=== PATIENT | female | born 1950 | race Caucasian/White ===

== ENCOUNTER 2019-11-07 11:00 | Outpatient (CLI) | payer MEDICARE, SELFPAY ==
[2019-11-07 11:51] LABS: Magnesium 1.4 mg/dL (1.8-2.4)
== END 2019-11-07 11:01 | disposition home or self-care (01) ==
LOC: CHSLAB 11:02
PROVIDERS: PCP Nurse Practitioner Family; Visit Provider Nurse Practitioner Family
DX: R79.0 Abnormal level of blood mineral (principal)
CPT/HCPCS: 36415; 83735

== ENCOUNTER 2019-11-27 11:29 | Outpatient (CLI) | payer MEDICARE, SELFPAY ==
[2019-11-27 12:34] LABS: Magnesium 1.5 mg/dL (1.8-2.4)
[2019-11-27 12:53] LABS: Hemoglobin A1C 7.3 % (<5.7)
[2019-11-30 11:06] LABS: Vitamin D 25 Hydroxy 33 ng/mL (30-100)
== END 2019-11-27 11:30 | disposition home or self-care (01) ==
LOC: CHSLAB 11:33
PROVIDERS: PCP Nurse Practitioner Family; Visit Provider Nurse Practitioner Family
DX: R79.0 Abnormal level of blood mineral (principal); E11.9 Type 2 diabetes mellitus without complications; R53.1 Weakness
CPT/HCPCS: 36415; 82306; 83036; 83735

== ENCOUNTER 2020-03-04 09:17 | Outpatient (CLI) | payer MEDICARE, SELFPAY ==
[2020-03-04 09:39] LABS: Hemoglobin A1C 6.4 % (<5.7)
[2020-03-04 10:38] LABS: Magnesium 1.5 mg/dL (1.8-2.4)
[2020-03-07 10:27] LABS: Vitamin D 25 Hydroxy 33 ng/mL (30-100)
== END 2020-03-04 09:18 | disposition home or self-care (01) ==
PROVIDERS: PCP Nurse Practitioner Family; Visit Provider Nurse Practitioner Family
DX: R79.0 Abnormal level of blood mineral (principal); E11.9 Type 2 diabetes mellitus without complications; E55.9 Vitamin D deficiency, unspecified
CPT/HCPCS: 36415; 82306; 83036; 83735

== ENCOUNTER 2020-03-09 14:26 | Outpatient (CLI) | payer MEDICARE, OTHER, SELFPAY ==
[2020-03-09] MEDS: MAGNESIUM SULF 4 GM/WATER100ML 4 GM/100 ML BAG IVPB (14:50)
== END 2020-03-09 14:27 | disposition home or self-care (01) ==
LOC: CHSTREATRM 14:28
PROVIDERS: PCP Nurse Practitioner Family; Visit Provider Nurse Practitioner Family
DX: E83.42 Hypomagnesemia (principal)
CPT/HCPCS: 96365; 96366; J3475

== ENCOUNTER 2020-04-01 14:21 | Outpatient (CLI) | payer MEDICARE, OTHER, SELFPAY ==
--- NOTE | ~2020-04-01 | MM_ITS ---
CORRECTED REPORT ORDER # [id number] TO [id number] TITLE CHANGE 04/02/2020 G EXAMINATION: MM screening mammo BI W KYLER HISTORY: Screening mammogram TECHNIQUE: Craniocaudal and mediolateral oblique 3-D tomosynthesis images were obtained and synthetic 2-D images were generated. CAD analysis was submitted and interpreted. COMPARISON: 01/01/2019 diagnostic left mammogram and left breast ultrasound 12/13/2018, 11/07/2017, 02/24/2016 bilateral digital screening mammogram examinations BREAST PARENCHYMAL COMPOSITION: There are scattered areas of fibroglandular density. FINDINGS: There is no evidence of suspicious mass, calcification, or architectural distortion to suggest malignancy in either breast. There has been no suspicious interval change. IMPRESSION: 1. No mammographic evidence of malignancy. 2. Recommend routine screening mammography in one year. BI-RADS Category 1: Negative Reviewed, dictated and finalized at location A. MTDD
== END 2020-04-01 14:22 | disposition home or self-care (01) ==
LOC: CHSIMG 14:23
PROVIDERS: PCP Nurse Practitioner Family; Visit Provider Nurse Practitioner Family
DX: Z12.31 Encounter for screening mammogram for malignant neoplasm of breast (principal)
CPT/HCPCS: 77063; 77067

== ENCOUNTER 2020-04-16 08:20 | Outpatient (CLI) | payer MEDICARE, SELFPAY ==
[2020-04-16 09:05] LABS: Magnesium 1.6 mg/dL (1.8-2.4)
[2020-04-21 18:49] LABS: Vitamin D 25 Hydroxy 34 ng/mL (30-100)
== END 2020-04-16 08:21 | disposition home or self-care (01) ==
LOC: CHSLAB 08:23
PROVIDERS: PCP Nurse Practitioner Family; Visit Provider Nurse Practitioner Family
DX: E55.9 Vitamin D deficiency, unspecified (principal)
CPT/HCPCS: 36415; 82306; 83735

== ENCOUNTER 2020-06-05 07:49 | Outpatient (CLI) | payer MEDICARE, SELFPAY ==
[2020-06-05 08:50] LABS: Magnesium 1.4 mg/dL (1.8-2.4)
== END 2020-06-05 07:50 | disposition home or self-care (01) ==
LOC: CHSLAB 07:52
PROVIDERS: PCP Nurse Practitioner Family; Visit Provider Nurse Practitioner Family
DX: R79.0 Abnormal level of blood mineral (principal)
CPT/HCPCS: 36415; 83735

== ENCOUNTER 2020-06-12 07:42 | Outpatient (CLI) | payer MEDICARE, SELFPAY ==
[2020-06-18 23:46] LABS: Magnesium, 24-Hour Urine 51 mg/24 h (18-130)
== END 2020-06-12 07:43 | disposition home or self-care (01) ==
LOC: CHSLAB 07:44
PROVIDERS: PCP Nurse Practitioner Family; Visit Provider Nurse Practitioner Family
DX: E83.42 Hypomagnesemia (principal)
CPT/HCPCS: 83735

== ENCOUNTER 2020-06-26 13:59 | Outpatient (RCR) | payer MEDICARE, OTHER, SELFPAY ==
--- NOTE | 2020-06-26 15:15 | PTOPEVAL ---
Thank you for referring Erica Billy to [facility].? The patient is scheduled to be seen for therapy? __3__x/week for _12__ visits. Please review, sign, date and return this plan of care ROSELINE. I agree with and certify that the following plan of care is medically necessary. Referring Physician Date Admitting Provider: Attending Provider: Saida Arndt NP Referring Provider: *PT Outpatient Evaluation Start: 06/26/20 14:09 Freq: Status: Active Protocol: Document 06/26/20 14:09 CASSIE (Rec: 06/26/20 14:52 [email or web address] [email or web address]) Therapy Assessment Status Assessment Status Assessment Status Evaluation Evaluation Information Problem Diagnosis bilateral l.e. weakness Onset 10/09/19 Subjective Information Pt. reports she started noting Query Text:As Reported By Patient/ loss of energy in October. Family She underwent lab work and noticed a decrease in magnesium. She underwent infusion. she still had difficulty maintaining normal levels. She reports that she has been doing some supplements. She states that she has recently noticed herself losing balance. She recalls experiencing a fall about 2 weeks ago. She reports that prior to the beginning of the year she had no complication and was very active. she reports that her goal is to be able to walk and balance as she did prior the past 9 months. Prior Level of Function Activity Level (Last 3 Months) Occupation retired Hand Dominance Right Activity of Daily Living Ability Independent Indoor/Home Mobility Independent Community Mobility Independent Stairs Ability Independent Functional Cognition (Planning, Shopping Independent , Taking Medications) Cooking Yes Cleaning Yes Laundry Yes Shopping Yes Driving Yes Pain Assessment Self Report Self Report Pain Level 0 Pain Scale Pain Scale Used Numeric (1 - 10) Pain Score Pain Score 0: Self Report Lower Extremity Muscle Strength Testing General Lower Extremity Strength Gross Lower Extremity Strength bilateral
== END 2020-07-23 16:15 | disposition home or self-care (01) ==
LOC: CHSPT 13:59
PROVIDERS: PCP Nurse Practitioner Family; Visit Provider Nurse Practitioner Family
DX: R53.1 Weakness (principal)
CPT/HCPCS: 97110; 97161; 97530

== ENCOUNTER 2020-07-03 15:22 | Outpatient (CLI) | payer MEDICARE, SELFPAY ==
[2020-07-03 15:55] LABS: Magnesium 1.6 mg/dL (1.8-2.4)
== END 2020-07-03 15:23 | disposition home or self-care (01) ==
PROVIDERS: PCP Nurse Practitioner Family; Visit Provider Nurse Practitioner Family
DX: E83.42 Hypomagnesemia (principal)
CPT/HCPCS: 36415; 83735

== ENCOUNTER 2020-08-04 08:31 | Outpatient (CLI) | payer MEDICARE, SELFPAY ==
[2020-08-04 09:20] LABS: Magnesium 1.7 mg/dL (1.8-2.4)
[2020-08-04 11:15] LABS: Hemoglobin A1C 5.8 % (<5.7)
== END 2020-08-04 08:32 | disposition home or self-care (01) ==
LOC: CHSLAB 08:34
PROVIDERS: PCP Nurse Practitioner Family; Visit Provider Nurse Practitioner Family
DX: R79.0 Abnormal level of blood mineral (principal); E11.9 Type 2 diabetes mellitus without complications
CPT/HCPCS: 36415; 83036; 83735

== ENCOUNTER 2020-11-16 11:01 | Outpatient (CLI) | payer MEDICARE, SELFPAY ==
[2020-11-16 12:03] LABS: Magnesium 1.5 mg/dL (1.8-2.4)
== END 2020-11-16 11:02 | disposition home or self-care (01) ==
LOC: CHSLAB 11:03
PROVIDERS: PCP Nurse Practitioner Family; Visit Provider Nurse Practitioner Family
DX: E83.42 Hypomagnesemia (principal)
CPT/HCPCS: 36415; 83735

== ENCOUNTER 2020-12-08 11:34 | Outpatient (CLI) | payer MEDICARE, SELFPAY ==
[2020-12-08 12:15] LABS: Magnesium 1.9 mg/dL (1.8-2.4)
== END 2020-12-08 11:35 | disposition home or self-care (01) ==
LOC: CHSLAB 11:36
PROVIDERS: PCP Nurse Practitioner Family; Visit Provider Nurse Practitioner Family
DX: E83.42 Hypomagnesemia (principal)
CPT/HCPCS: 36415; 83735

== ENCOUNTER 2020-12-10 11:32 | Outpatient (CLI) | payer MEDICARE, OTHER, SELFPAY ==
--- NOTE | ~2020-12-10 | XR_ITS ---
EXAMINATION: XR lumbar spine 2-3V DATE: 12/10/2020 12:28 INDICATION: Back pain. TECHNIQUE: 3 views of lumbar spine were obtained. COMPARISON: CT abdomen and pelvis 02/14/2017 FINDINGS: There is 22 degrees dextroscoliosis of thoracolumbar spine. There is 4 mm retrolisthesis of L1 on L2 and L2 on L3 and 10 mm anterolisthesis of L4 on L5. Vertebral body heights are normal. Ther e is severely decreased disc height at L1-L2 and L2-L3, moderately decreased disc at L3-L4 and L4-L5 and severely decreased disc height at L5-S1. There is severe facet joint osteoarthritis at most level s in lumbar spine. IMPRESSION: 1. Severe lumbar spondylosis. 2. Thoracolumbar dextroscoliosis. Reviewed, dictated and finalized at location A. [employer] TECH
--- NOTE | ~2020-12-10 | XR_ITS ---
EXAMINATION: XR thoracic spine 3V DATE: 12/10/2020 12:28 INDICATION: Back pain. TECHNIQUE: 3 views of thoracic spine were obtained. COMPARISON: None. FINDINGS: There is 4 degrees dextrocurvature of upper thoracic spine and 9 degrees levocurvature of l ower thoracic spine. There is 4 mm anterolisthesis of C4 on C5. Vertebral body heights are normal. Th ere is severely decreased disc height at most levels in thoracic spine and lower cervical spine. Ther e are endplate osteophytes at all levels. There is at least mild multilevel facet joint osteoarthriti s. IMPRESSION: 1. Severe thoracic and cervical spondylosis. Reviewed, dictated and finalized at location A. SUPERVISOR
[2020-12-10 11:51] LABS: Basophils Absolute Auto 0.04 K/mm3 (0.00-0.10); Basophils Percent Auto 0.5 % (0.0-1.0); Eosinophils Percent Auto 3.9 % (1.0-6.0); Hematocrit 38.1 % (35.0-42.0); Hemoglobin 12.8 g/dL (11.7-13.8); Immature Granulocyte Absolute 0.02 K/mm3 (0.00-0.00); Immature Granulocyte Percent A 0.3 % (0.0-0.0); Lymphocytes Absolute Auto 2.16 K/mm3 (1.10-4.50); Mean Corpuscular HGB Conc 33.6 g/dL (32.0-36.0); Mean Corpuscular Hemoglobin 30.2 pg (27.0-31.0); Mean Corpuscular Volume 89.9 fL (78.0-102.0); Mean Platelet Volume 10.1 fl (9.2-11.8); Monocytes Absolute Auto 0.48 K/mm3 (0.10-0.90); Monocytes Percent Auto 6.2 % (2.0-11.0); Neutrophils Absolute Auto 4.7 K/mm3 (1.7-7.2); Neutrophils Percent Auto 61.1 % (50.0-70.0); Platelet Count Result 358 K/mm3 (150-420); Red Blood Count 4.24 M/mm3 (4.20-5.40); Red Cell Distribution Width 12.6 % (11.6-14.4); White Blood Count 7.7 K/mm3 (4.8-10.8)
[2020-12-10 12:14] LABS: Hemoglobin A1C 5.6 % (<5.7)
[2020-12-10 12:41] LABS: Alanine Aminotransferase 34 U/L (14-59); Albumin Level 4.3 g/dL (3.4-5.0); Alkaline Phosphatase 78 U/L (46-116); Anion Gap 9 mmol/L (8-16); Aspartate Amino Transferase 19 U/L (15-37); Blood Urea Nitrogen 35 mg/dL (7-18); Calcium 10.1 mg/dL (8.5-10.1); Carbon Dioxide 23 mmol/L (21-32); Chloride 100 mmol/L (98-108); Cholesterol 118 mg/dL (0-200); Estimated Glomerular Filt Rate 33; Free T4 Free Thyroxine 1.04 ng/dL (0.76-1.46); Glucose 96 mg/dL (70-99); HDL Direct 41 mg/dL (40-60); LDL Cholesterol Calculated 46 mg/dL (<130); Osmolality Calculated 282 mOsm/kg (285-295); Potassium 5.9 mmol/L (3.5-5.1); Sodium 132 mmol/L (136-145); Thyroid Stimulating Hormone 0.94 uIU/mL (0.36-3.74); Total Protein 7.7 g/dL (6.4-8.2); Triglycerides 154 mg/dL (0-150)
[2020-12-13 22:28] LABS: Vitamin D 25 Hydroxy 34 ng/mL (30-100)
== END 2020-12-10 11:33 | disposition home or self-care (01) ==
LOC: CHSLAB 11:38
PROVIDERS: PCP Nurse Practitioner Family; Visit Provider Nurse Practitioner Family
DX: R26.2 Difficulty in walking, not elsewhere classified (principal); I10 Essential (primary) hypertension; R53.1 Weakness; E11.9 Type 2 diabetes mellitus without complications; E78.5 Hyperlipidemia, unspecified; Z79.899 Other long term (current) drug therapy
CPT/HCPCS: 36415; 72072; 72100; 80053; 80061; 82306; 83036; 84439; 84443; 85025

== ENCOUNTER 2020-12-15 11:04 | Outpatient (CLI) | payer MEDICARE, SELFPAY ==
[2020-12-15 11:30] LABS: Creatinine Urine 152.19 mg/dL (40-278); MALB Creatinine Ratio 52.7 mg/g (0-30); Microalbumin Urine Random 80.3 mg/L
[2020-12-15 11:58] LABS: Alanine Aminotransferase 31 U/L (14-59); Albumin Level 4.4 g/dL (3.4-5.0); Alkaline Phosphatase 79 U/L (46-116); Anion Gap 9 mmol/L (8-16); Aspartate Amino Transferase 19 U/L (15-37); Bilirubin,Total 1.2 mg/dL (0.00-1.00); Blood Urea Nitrogen 29 mg/dL (7-18); Calcium 10.5 mg/dL (8.5-10.1); Carbon Dioxide 24 mmol/L (21-32); Chloride 99 mmol/L (98-108); Estimated Glomerular Filt Rate 33; Glucose 97 mg/dL (70-99); Osmolality Calculated 279 mOsm/kg (285-295); Potassium 5.8 mmol/L (3.5-5.1); Sodium 132 mmol/L (136-145); Total Protein 7.6 g/dL (6.4-8.2)
== END 2020-12-15 11:05 | disposition home or self-care (01) ==
LOC: CHSLAB 11:07
PROVIDERS: PCP Nurse Practitioner Family; Visit Provider Nurse Practitioner Family
DX: E87.5 Hyperkalemia (principal); E11.9 Type 2 diabetes mellitus without complications
CPT/HCPCS: 36415; 80053; 82043

== ENCOUNTER 2020-12-21 09:59 | Outpatient (CLI) | payer MEDICARE, SELFPAY ==
[2020-12-21 10:53] LABS: Alanine Aminotransferase 27 U/L (14-59); Albumin Level 4.1 g/dL (3.4-5.0); Alkaline Phosphatase 78 U/L (46-116); Anion Gap 10 mmol/L (8-16); Aspartate Amino Transferase 14 U/L (15-37); Bilirubin,Total 1.2 mg/dL (0.00-1.00); Blood Urea Nitrogen 23 mg/dL (7-18); Carbon Dioxide 24 mmol/L (21-32); Chloride 102 mmol/L (98-108); Estimated Glomerular Filt Rate 39; Glucose 106 mg/dL (70-99); Osmolality Calculated 285 mOsm/kg (285-295); Sodium 136 mmol/L (136-145); Total Protein 6.8 g/dL (6.4-8.2)
== END 2020-12-21 10:00 | disposition home or self-care (01) ==
PROVIDERS: PCP Nurse Practitioner Family; Visit Provider Nurse Practitioner Family
DX: E87.5 Hyperkalemia (principal); E87.1 Hypo-osmolality and hyponatremia
CPT/HCPCS: 36415; 80053

== ENCOUNTER 2020-12-28 11:20 | Outpatient (NON) | payer MEDICARE, SELFPAY | END 2020-12-28 11:21 | LOC: CHSLAB 11:21 | PROVIDERS: Visit Provider Nurse Practitioner Family | DX: M54.9 Dorsalgia, unspecified (principal); G89.29 Other chronic pain | CPT/HCPCS: 87086 ==

== ENCOUNTER 2021-02-26 07:07 | Outpatient (CLI) | payer MEDICARE, SELFPAY ==
[2021-02-26 08:13] LABS: Creatinine Urine 62.65 mg/dL (40-278); MALB Creatinine Ratio 20.7 mg/g (0-30); Microalbumin Urine Random < 13.0 mg/L
[2021-02-26 08:54] LABS: Alanine Aminotransferase 33 U/L (14-59); Alkaline Phosphatase 82 U/L (46-116); Anion Gap 7 mmol/L (8-16); Aspartate Amino Transferase 22 U/L (15-37); Blood Urea Nitrogen 14 mg/dL (7-18); Carbon Dioxide 28 mmol/L (21-32); Chloride 101 mmol/L (98-108); Cholesterol 152 mg/dL (0-200); Estimated Glomerular Filt Rate 47; Free T4 Free Thyroxine 1.05 ng/dL (0.76-1.46); Glucose 115 mg/dL (70-99); HDL Direct 48 mg/dL (40-60); LDL Cholesterol Calculated 71 mg/dL (<130); Osmolality Calculated 283 mOsm/kg (285-295); Sodium 136 mmol/L (136-145); Thyroid Stimulating Hormone 1.39 uIU/mL (0.36-3.74); Total Protein 6.6 g/dL (6.4-8.2); Triglycerides 167 mg/dL (0-150); Vitamin B12 454 pg/mL (193-986)
== END 2021-02-26 07:08 | disposition home or self-care (01) ==
LOC: CHSLAB 07:13
PROVIDERS: PCP Nurse Practitioner Family; Visit Provider Nurse Practitioner Family
DX: E87.5 Hyperkalemia (principal); G62.9 Polyneuropathy, unspecified; E11.9 Type 2 diabetes mellitus without complications; E87.1 Hypo-osmolality and hyponatremia
CPT/HCPCS: 36415; 80053; 80061; 82043; 82607; 84439; 84443

== ENCOUNTER 2021-06-01 07:23 | Outpatient (CLI) | payer MEDICARE, SELFPAY ==
[2021-06-01 08:19] LABS: Anion Gap 8 mmol/L (8-16); Blood Urea Nitrogen 20 mg/dL (7-18); Calcium 9.7 mg/dL (8.5-10.1); Carbon Dioxide 28 mmol/L (21-32); Chloride 102 mmol/L (98-108); Estimated Glomerular Filt Rate 59; Glucose 109 mg/dL (70-99); Osmolality Calculated 289 mOsm/kg (285-295); Potassium 4.4 mmol/L (3.5-5.1); Sodium 138 mmol/L (136-145)
[2021-06-01 08:39] LABS: Magnesium 1.5 mg/dL (1.8-2.4)
== END 2021-06-01 07:24 | disposition home or self-care (01) ==
PROVIDERS: PCP Nurse Practitioner Family
DX: E83.52 Hypercalcemia (principal); E87.1 Hypo-osmolality and hyponatremia
CPT/HCPCS: 36415; 80048; 83735

== ENCOUNTER 2021-06-08 11:17 | Outpatient (CLI) | payer MEDICARE, OTHER, SELFPAY ==
[2021-06-08] MEDS: MAGNESIUM SULF 2 GM/WATER 50ML 2 GM/50 ML BAG IVPB (11:30)
[2021-06-08 11:36] VITALS: BMI 35.6
[2021-06-08 11:38] VITALS: BP 130/70; PULSE 68; RESP 14; TEMP 37; O2SAT 98
--- NOTE | 2021-06-08 12:26 | PC.NURSE ---
Patient here for Magnesium 2 gm IV infusion r/t Mag level 1.5. Education on Magnesium infusion given. No concerns voiced. Magnesium 2 gm IV administered See MAR. Tolerated well. Safe exit of department per wc to Lab to have repeat Mag draw post transfusion.
[2021-06-08 14:48] LABS: Magnesium 2.4 mg/dL (1.8-2.4)
== END 2021-06-08 11:18 | disposition home or self-care (01) ==
PROVIDERS: PCP Nurse Practitioner Family; Visit Provider Nurse Practitioner Family
DX: E83.42 Hypomagnesemia (principal)
CPT/HCPCS: 36415; 83735; 96365; 96366; J3475

== ENCOUNTER 2021-07-01 20:40 | Emergency (ER) | payer MEDICARE, OTHER, SELFPAY ==
[2021-07-01 21:00] VITALS: BP 149/68; PULSE 86; RESP 20; TEMP 36.8; O2SAT 98
--- NOTE | 2021-07-01 21:01 | ED.LOWEXIN ---
HPI - Extremity Injury (Lower) General Chief Complaint: Extremity Injury, Lower Stated Complaint: pain in leg Source: patient and family Mode of arrival: wheelchair Limitations: no limitations History of Present Illness HPI Narrative: this is a 71-year-old female that presents after she tripped and injured her lower back, the patient tripped and did not fall and had been radiation of pain into her right thigh with no saddle paresthesias no fever chills pain elicited with movement of her right lower extremity. complaint: other ( tripped and having a right lower back pain with some radiculopathy into her right lower extremity) Severity: severe Severity scale (1-10): 10 Relieving factors: NSAID Exacerbating factors: movement Context: other ( tripped but did not fall) Related Data Home Medications Medication Instructions Recorded Confirmed aspirin 81 mg tablet,delayed 81 mg PO DAILY 10/17/19 06/09/20 release alpha lipoic acid 50 mg capsule 50 mg PO DAILY 03/15/21 ascorbic acid 1,000 ea PO 03/15/21 ij-[id number]-[id number] powder effervescent pack Allergies Allergy/AdvReac Type Severity Reaction Status Date / Time amlodipine AdvReac Severe Swelling Verified 07/01/21 21:16 furosemide [From Lasix] AdvReac Severe Swelling Verified 07/01/21 21:16 Sulfonamides Allergy Intermediate Upset Uncoded 07/01/21 21:16 Stomach Review of Systems Review of Systems: All systems reviewed & are unremarkable except as noted in HPI and below PMFSH Past Medical History Medical History (Updated 07/01/21 @ 21:05 by Herberth Burnett MD) Chronic back pain Diverticulosis HTN (hypertension) Hyperlipidemia Low magnesium level Osteoarthritis Type 2 diabetes mellitus Surgical History Surgical History Hx of colonoscopy February 2018 Hx of hysterectomy Family History Family History Father Parkinson disease Mother Leukemia Social History Social History Smoking status: Never smoker Tobacco type: cigarettes Exam Const: General: no acute distress and alert Orientation/consciousness: patient oriented x3 HENMT: Head: normal to inspection Eyes: Conjunctivae: conjunctivae normal Pupils: Equal, round and reactive pupils present Neck: Neck: normal visual inspection, no lymphadenopathy and no meningeal signs Chest: Chest palpation & inspection: normal inspection of the chest Cardio: Rate: regular rate Rhythm: regular rhythm GI: GI Palp: Yes Soft to palpation Percussion: Yes normal to percussion : General: Yes no CVA tenderness Back/Spine/Pelvis: Back: no CVA tenderness Skin: General skin exam: normal color Rashes: no rashes Neuro: Other: Positive straight leg raising test on the right tenderness in her L4 and 5 right paravertebral area of palpation Extrem: General: normal to inspection and no pedal edema Psych: Mental Status: mental status grossly normal Affect: normal affect Course Course Emergency Course: reassessment of patient after receiving 30mg IM Toradol and pain has improved Critical Care Time Critical Care Time Critical Care Time: No Discharge Plan Discharge Clinical Impression: Sciatica Qualifiers: Laterality: right Qualified Code(s): M54.31 - Sciatica, right side Patient Disposition: Home, Self-Care Condition: Stable Instructions: Antibiotic Form, Sciatica (ED) Additional Instructions: take medicine as prescribed and follow-up with practitioner for further evaluation and treatment. Prescriptions: New tramadol [Ultram] 50 mg tablet 50 mg PO HS Qty: 10 RF: 0 tramadol [Ultram] 50 mg tablet 50 mg PO Q6H PRN (Reason: pain) Qty: 14 RF: 0 No Action aspirin [Adult Aspirin Regimen] 81 mg tablet,delayed release (DR/EC) 81 mg PO DAILY RF: 0 alpha lipoic acid 50 mg capsule
[2021-07-01] MEDS: KETOROLAC 30 MG/ML VIAL (*BKC) IM (21:08)
[2021-07-01 21:20] VITALS: BP 174/97; PULSE 74; RESP 20; TEMP 36.5; O2SAT 98
== END 2021-07-01 21:25 | disposition home or self-care (01) ==
PROVIDERS: Emergency Provider Emergency Medicine; PCP Family Medicine
DX: M54.31 Sciatica, right side (principal)
CPT/HCPCS: 96372; 99283; J1885

== ENCOUNTER 2021-07-07 08:43 | Outpatient (CLI) | payer MEDICARE, OTHER, SELFPAY ==
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
== END 2021-07-07 08:44 | disposition home or self-care (01) ==
LOC: CHSIMG 08:45
PROVIDERS: PCP Nurse Practitioner Family; Visit Provider Family Medicine
DX: M41.80 Other forms of scoliosis, site unspecified (principal)
CPT/HCPCS: 72148

== ENCOUNTER 2021-07-13 10:05 | Outpatient (RCR) | payer MEDICARE, OTHER, SELFPAY ==
--- NOTE | 2021-07-13 13:00 | PTOPEVAL ---
Thank you for referring Erica Billy to [facility].? The patient is scheduled to be seen for therapy? ____x/week for ___ weeks. Please review, sign, date and return this plan of care ROSELINE. I agree with and certify that the following plan of care is medically necessary. Referring Physician Date Admitting Provider: Attending Provider: Efra Montoya DO Referring Provider: *PT Outpatient Evaluation Start: 07/13/21 09:57 Freq: Status: Active Protocol: Document 07/13/21 09:57 ACR (Rec: 07/13/21 11:02 [email or web address] [id number]) Therapy Assessment Status Assessment Status Assessment Status Evaluation Evaluation Information Problem Diagnosis back pain Onset 06/22/21 Subjective Information Patient states that she Query Text:As Reported By Patient/ started having difficulty with Family her balance, she fell in the night and started using a cane for awhile. Then she started to have difficulty with lifting her R leg and then moved to the rollator. She states that she is able to lift her leg when in sitting, but then when she gets to standing her leg is too heavy and she cannot lift it. She states that her helps her walk around the house. She states she has had 2 falls in the past year. She is very fearful of falling and very concerned that she cannot lift her leg. Patient states that she needs help with bathing, dressing, and toileting. She states she has grab bars in the bathroom which have helped . The patient does not drive. She has a ramp from the garage to the kitchen. Prior Level of Function Activity Level (Last 3 Months) Occupation retired Hand Dominance Right Activity of Daily Living Ability Needs Some Help Indoor/Home Mobility Needs Some Help Community Mobility Needs Some Help Stairs Ability Dependent Functional Cognition (Planning, Shopping Needs Some Help , Taking Medications) Cooking No Cleaning No Laundry No Shopping
== END 2021-07-21 10:26 | disposition home or self-care (01) ==
LOC: CHSPT 10:05
PROVIDERS: PCP Family Medicine; Visit Provider Family Medicine
DX: M41.80 Other forms of scoliosis, site unspecified (principal)
CPT/HCPCS: 97110; 97161; 97530

== ENCOUNTER 2021-07-26 12:53 | Outpatient (CLI) | payer MEDICARE, OTHER, SELFPAY ==
--- NOTE | ~2021-07-26 | XR_ITS ---
EXAMINATION: XR lumbar spine min 4V DATE: 07/26/2021 14:06 INDICATION: Spondylolisthesis TECHNIQUE: Anteroposterior and lateral in neutral, flexion and extension views of the lumbar spine, a nd cone-down lateral view of the lumbosacral junction were obtained. COMPARISON: 12/10/2020 FINDINGS: There is unchanged lumbar dextroscoliosis. There are 4 mm of stable retrolisthesis of L1 on L2 and L3 and 10 mm of stable anterolisthesis of L4 on L5. No fracture is identified. No laxity is p resent with flexion or extension. The vertebral body heights are maintained. There is severe loss of intervertebral disc space height at L1-2, L2-3, and L5-S1 and moderate loss of intervertebral disc sp sen height at L3-4. IMPRESSION: 1. Severe lumbar spondylosis without acute findings or significant interval change. Reviewed, dictated and finalized at location A. IMPRESSION: 1. Severe lumbar spondylosis without acute findings or significant interval geoff nge.
--- NOTE | ~2021-07-26 | US_ITS ---
EXAMINATION: US venous doppler [facility] DATE: 07/26/2021 13:36 INDICATION: Lower limb swelling. TECHNIQUE: Grayscale ultrasound images without and with compression and Doppler ultrasound images of the bilateral lower extremity veins were obtained. COMPARISON: None. FINDINGS: The visualized portions of right common femoral vein, profunda (deep) femoral vein, femoral vein, pop liteal vein, peroneal veins, posterior tibial veins, and greater saphenous vein outflow are patent. The visualized portions of left common femoral vein, profunda femoral vein, femoral vein, and greater saphenous vein outflow are patent. There is thrombus in left popliteal, gastrocnemius, posterior tib ial, and peroneal veins with enlargement of the veins. IMPRESSION: 1. Acute deep vein thrombosis involving left popliteal, gastrocnemius, posterior tibial, and peronea l veins. Reviewed, dictated and finalized at location A. IMPRESSION: 1. Acute deep vein thrombosis involving left popliteal, gastrocnemius, posteri or tibial, and peroneal veins.
[2021-07-26 13:09] LABS: Basophils Absolute Auto 0.03 K/mm3 (0.00-0.10); Basophils Percent Auto 0.5 % (0.0-1.0); Eosinophils Absolute Auto 0.24 K/mm3 (0.02-0.50); Eosinophils Percent Auto 4.4 % (1.0-6.0); Hemoglobin 12.9 g/dL (11.7-13.8); Immature Granulocyte Absolute 0.01 K/mm3 (0.00-0.00); Immature Granulocyte Percent A 0.2 % (0.0-0.0); Lymphocytes Percent Auto 23.7 % (18.0-42.0); Mean Corpuscular HGB Conc 33.1 g/dL (32.0-36.0); Mean Corpuscular Hemoglobin 29.1 pg (27.0-31.0); Mean Platelet Volume 9.7 fl (9.2-11.8); Monocytes Absolute Auto 0.35 K/mm3 (0.10-0.90); Monocytes Percent Auto 6.4 % (2.0-11.0); Neutrophils Absolute Auto 3.6 K/mm3 (1.7-7.2); Neutrophils Percent Auto 64.8 % (50.0-70.0); Platelet Count Result 281 K/mm3 (150-420); Red Blood Count 4.43 M/mm3 (4.20-5.40); White Blood Count 5.5 K/mm3 (4.8-10.8)
[2021-07-26 13:10] LABS: Add Urine Microscopic? YES; Appearance Urine Clear (Clear); Bilirubin Urine Negative (Negative); Blood Urine 3+ (Negative); Color Urine Orange (Yellow); Glucose Urine UA Negative (Negative); Ketones Urine Negative (Negative); Leukocyte Esterase Ur 2+ LEU/UL (Negative); Nitrate Urine Negative (Negative); Protein Urine Negative (Negative); Urobilinogen Urine 0.2 mg/dL (0.2-1.0)
[2021-07-26 13:24] LABS: Squamous Epithelial Cell Urine Few /hpf (Few)
[2021-07-26 13:25] LABS: Bacteria Urine 2+ /hpf
[2021-07-26 13:28] LABS: INR 1.1; Partial Thromboplastin Time 25.6 SEC (23.90-30.70); Prothrombin Time 11.3 Seconds (9.50-12.10)
--- NOTE | 2021-07-26 14:00 | ECG_ITS ---
Measurements Intervals Dieterich Rate: 81 P: 60 MN: 165 QRS: 30 QRSD: 87 T: 59 QT: 335 QTc: 391 Interpretive Statements SINUS RHYTHM DELAYED PRECORDIAL R/S TRANSITION BASELINE ARTIFACT- I, II, III BORDERLINE ECG Electronically Signed On 07-26-2021 14:37:00 CDT by Ru Man D.O.
[2021-07-26 14:05] LABS: Anion Gap 8 mmol/L (8-16); Blood Urea Nitrogen 19 mg/dL (7-18); Calcium 9.8 mg/dL (8.5-10.1); Carbon Dioxide 30 mmol/L (21-32); Chloride 99 mmol/L (98-108); Estimated Glomerular Filt Rate > 60; Glucose 110 mg/dL (70-99); Osmolality Calculated 287 mOsm/kg (285-295); Sodium 137 mmol/L (136-145)
== END 2021-07-26 12:54 | disposition home or self-care (01) ==
LOC: CHSIMG 12:56
PROVIDERS: PCP Family Medicine
DX: I82.409 Acute embolism and thrombosis of unspecified deep veins of unspecified lower extremity (principal); Z01.818 Encounter for other preprocedural examination; M43.10 Spondylolisthesis, site unspecified; R82.90 Unspecified abnormal findings in urine; Z86.718 Personal history of other venous thrombosis and embolism
CPT/HCPCS: 36415; 72110; 80048; 81001; 85025; 85610; 85730; 87086; 93005; 93970

== ENCOUNTER 2021-08-02 10:13 | Outpatient (CLI) | payer MEDICARE, SELFPAY ==
[2021-08-02 10:50] LABS: INR 1.4; Prothrombin Time 14.9 Seconds (9.50-12.10)
== END 2021-08-02 10:14 | disposition home or self-care (01) ==
LOC: CHSLAB 10:15
PROVIDERS: PCP Family Medicine; Visit Provider Nurse Practitioner Family
DX: I82.409 Acute embolism and thrombosis of unspecified deep veins of unspecified lower extremity (principal)
CPT/HCPCS: 36415; 85610

== ENCOUNTER 2021-08-04 07:11 | Outpatient (CLI) | payer MEDICARE, SELFPAY ==
[2021-08-04 07:21] LABS: Add Urine Microscopic? YES; Appearance Urine Clear (Clear); Bilirubin Urine Negative (Negative); Blood Urine Negative (Negative); Color Urine Light Yellow (Yellow); Glucose Urine UA Negative (Negative); Ketones Urine Negative (Negative); Leukocyte Esterase Ur 2+ (Negative); Nitrate Urine Negative (Negative); Protein Urine Negative (Negative); Urobilinogen Urine 0.2 mg/dL (0.2-1.0); pH Urine 6.5 (5.0-8.0)
[2021-08-04 07:38] LABS: Bacteria Urine 2+ /hpf; RBC Urine 0-2 /hpf (0-2); Squamous Epithelial Cell Urine Few /hpf (Few); WBC Urine 31-50 /hpf (0-3)
== END 2021-08-04 07:12 | disposition home or self-care (01) ==
LOC: CHSLAB 07:12
PROVIDERS: PCP Family Medicine; Visit Provider Nurse Practitioner Family
DX: R30.0 Dysuria (principal)
CPT/HCPCS: 81001; 87086; 87088

== ENCOUNTER 2021-08-16 07:53 | Outpatient (RCR) | payer MEDICARE, SELFPAY ==
[2021-08-09 10:06] LABS: INR 3.2; Prothrombin Time 32.3 Seconds (9.50-12.10)
[2021-08-16 08:46] LABS: Prothrombin Time 20.4 Seconds (9.50-12.10)
== END 2021-11-07 23:59 | disposition home or self-care (01) ==
LOC: CHSLAB 07:53
PROVIDERS: PCP Nurse Practitioner Family; Visit Provider Nurse Practitioner Family
DX: Z79.01 Long term (current) use of anticoagulants (principal)
CPT/HCPCS: 36415; 85610

== ENCOUNTER 2021-11-05 11:25 | Outpatient (CLI) | payer MEDICARE, OTHER, SELFPAY ==
--- NOTE | ~2021-11-05 | DEXA_ITS ---
Bone Density Report Name: MARQUITA SIMS Age: 71 Sex: Female Ethnicity: White Date of : 1950 Indication: postmenopausal; screening for osteoporosis; height loss; hysterectomy; Referring Provider: YOSHI, MERCY Study: Bone densitometry was performed. Exam Date: November 05, 2021 Accession number: [id number] Bone Density: Region BMD T-score Z-score Classification AP Spine(L1-L4) 1.451 3.7 5.8 Normal Femoral Neck (Left) 0.831 -0.2 1.7 Normal Total Hip (Left) 0.966 0.2 1.7 Normal Femoral Neck (Right) 0.847 0.0 1.8 Normal Total Hip (Right) 0.954 0.1 1.6 Normal Femoral Neck Mean 0.839 -0.1 1.7 Normal Total Hip Mean 0.960 0.1 1.7 Normal World Health Organization criteria for BMD impression classify patients as: Normal (T-score at or above -1.0), Osteopenia (T-score between -1.0 and -2.5), or Osteoporosis (T-score at or below -2.5). 10-year Fracture Risk: FRAX not reported because: All T-scores for Spine Total, Hip Total, Femoral Neck at or above -1.0 Clinical Information Provided by Patient: Has used the following medications: Vitamin D Has the following medical conditions: Hysterectomy Patient maximum height was 66 Menopause Age: 55 No regular weight bearing exercise Drinks caffeinated beverages Onset of menses at age 12 Number of children 2 Impression: The patient has normal bone mass. Discussion: BONE DENSITY IS ABOVE THE MINIMUM DESIRABLE LEVEL AT ALL SKELETAL SITES TESTED. This patient?s bone mineral density is above the minimum desirable level (T-score -1.0 or better) at all sites measured. The patient should follow a healthful lifestyle (good nutrition with adequate calcium and vitamin D, and appropriate weight-bearing exercise). Follow-Up: Consider repeating this study in 5 years or sooner if there is some new clinical indication. Reported by: Dr. Doc Ruth on 11/05/2021 12:24:00 PM. Reviewed, dictated and finalized at location A. [facility]
--- NOTE | ~2021-11-05 | MM_ITS ---
EXAMINATION: MM screening efren BI w srikanth HISTORY: Screening mammogram, family history of breast cancer in her mother. TECHNIQUE: Craniocaudal and mediolateral oblique 3-D tomosynthesis images were obtained and synthetic 2-D images were generated. CAD analysis was submitted and interpreted. COMPARISON: 04/01/2020, 01/01/2019, 12/13/2018, 11/07/2017 BREAST PARENCHYMAL COMPOSITION: There are scattered areas of fibroglandular density. FINDINGS: RIGHT BREAST: Focal asymmetry is present in the posterior third of the upper outer quadrant of the br east. LEFT BREAST: There is no evidence of suspicious mass, calcification, or architectural distortion to s uggest malignancy. There has been no significant interval change. IMPRESSION: 1. Focal asymmetry of the right breast. 2. Additional mammographic views and possible breast ultrasound are recommended. BI-RADS Category 0: Incomplete: Needs additional imaging evaluation. Reviewed, dictated and finalized at location A. SITTER IMPRESSION: 1. Focal asymmetry of the right breast. 2. Additional mammographic views and possible breast ultrasound are recommended . BI-RADS Category 0: Incomplete: Needs additional imaging evaluation.
== END 2021-11-05 11:26 | disposition home or self-care (01) ==
LOC: CHSIMG 11:27
PROVIDERS: PCP Family Medicine; Visit Provider Neurological Surgery
DX: Z78.0 Asymptomatic menopausal state (principal); Z12.31 Encounter for screening mammogram for malignant neoplasm of breast
CPT/HCPCS: 77063; 77067; 77080

== ENCOUNTER 2021-12-07 09:06 | Outpatient (CLI) | payer MEDICARE, OTHER, SELFPAY ==
--- NOTE | ~2021-12-07 | MM_ITS ---
CORRECTED REPORT order change 12/08/21 [facility] [place] EXAMINATION: MM diagnostic efren RT w srikanth HISTORY: Focal asymmetry of the right breast on screening mammogram TECHNIQUE: Additional 3-D tomosynthesis images of the right breast were performed and synthetic 2-D images were generated. CAD analysis was submitted and interpreted. COMPARISON: 11/05/2021, 04/01/2020, 12/13/2018, 11/07/2017 FINDINGS: There is a return to baseline fibroglandular appearance with spot compression of the right breast in the area questioned on screening mammogram. IMPRESSION: 1. No mammographic evidence of malignancy. 2. Recommend routine screening mammography in one year. BI-RADS Category 1: Negative Reviewed, dictated and finalized at location A. [employer] PROCESS ENGINEER MTDD
== END 2021-12-07 09:07 | disposition home or self-care (01) ==
PROVIDERS: PCP Family Medicine; Visit Provider Family Medicine
DX: R92.8 Other abnormal and inconclusive findings on diagnostic imaging of breast (principal)
CPT/HCPCS: 77061; 77065; G0279

== ENCOUNTER 2021-12-25 10:05 | Outpatient (CLI) | payer MEDICARE, SELFPAY ==
[2021-12-25 10:24] LABS: Add Urine Microscopic? YES; Appearance Urine Clear (Clear); Bilirubin Urine Negative (Negative); Blood Urine Negative (Negative); Color Urine Light Yellow (Yellow); Glucose Urine UA Negative (Negative); Ketones Urine Negative (Negative); Leukocyte Esterase Ur 2+ LEU/UL (Negative); Nitrate Urine Negative (Negative); Protein Urine Negative (Negative); Urobilinogen Urine 0.2 mg/dL (0.2-1.0)
[2021-12-25 10:30] LABS: Bacteria Urine Trace /hpf; RBC Urine None seen /hpf (0-2); Squamous Epithelial Cell Urine Rare /hpf (Few)
== END 2021-12-25 10:06 | disposition home or self-care (01) ==
LOC: CHSLAB 10:08
PROVIDERS: PCP Family Medicine; Visit Provider Family Medicine
DX: R30.0 Dysuria (principal)
CPT/HCPCS: 81001; 87086; 87088

== ENCOUNTER 2021-12-25 12:20 | Emergency (ER) | payer MEDICARE, OTHER, SELFPAY ==
--- NOTE | 2021-12-25 12:55 | ED.FEMALEGU ---
HPI - Female Genitourinary General Chief complaint: Urogenital-Female Stated complaint: possible UTI Source: patient and family Mode of arrival: wheelchair Limitations: no limitations History of Present Illness HPI Narrative: This is a 71-year-old female with history of hyperlipidemia diabetes hypertension, is scheduled to have back surgery this coming Monday and her doctor ordered a UA and she had that performed today which shows that she has a urinary tract infection. She could get a hold of her primary care physician, patient has been having dysuria and suprapubic pressure with no hematuria no fever chills no flank pain no nausea vomiting. MD elicited complaint: dysuria and UTI Related Data Home Medications Medication Instructions Recorded Confirmed aspirin 81 mg tablet,delayed 81 mg PO DAILY 10/17/19 06/09/20 release alpha lipoic acid 50 mg capsule 50 mg PO DAILY 03/15/21 metoprolol tartrate 50 mg tablet 50 mg PO BID 11/05/21 Allergies Allergy/AdvReac Type Severity Reaction Status Date / Time amlodipine AdvReac Severe Swelling Verified 11/05/21 08:09 furosemide [From Lasix] AdvReac Severe Swelling Verified 11/05/21 08:09 Sulfonamides Allergy Intermediate Upset Uncoded 08/02/21 10:28 Stomach Review of Systems Review of Systems: All systems reviewed & are unremarkable except as noted in HPI and below PMFSH Past Medical History Medical History (Updated 12/25/21 @ 12:59 by Herberth Burnett MD) Chronic back pain Diverticulosis HTN (hypertension) Hyperlipidemia Osteoarthritis Type 2 diabetes mellitus Surgical History Surgical History Hx of colonoscopy February 2018 Hx of hysterectomy Family History Family History Father Parkinson disease Mother Leukemia Social History Social History Smoking status: Never smoker Tobacco type: cigarettes Alcohol intake: never Substance use: never Substance use type: does not use Exam Const: General: no acute distress and alert Orientation/consciousness: patient oriented x3 HENMT: Head: normal to inspection Eyes: Conjunctivae: conjunctivae normal Pupils: Equal, round and reactive pupils present Neck: Neck: normal visual inspection, no lymphadenopathy and no meningeal signs Chest: Chest palpation & inspection: normal inspection of the chest Resp: Effort & Inspection: normal respiratory effort Auscultation: clear to auscultation bilaterally Cardio: Rate: regular rate Rhythm: regular rhythm GI: Other: Suprapubic tenderness with palpation : General: Yes no CVA tenderness Urinary Catheter: Urinary Catheter: patent and draining and urine clear Back/Spine/Pelvis: Back: no CVA tenderness Skin: General skin exam: normal color Rashes: no rashes Neuro: General: patient oriented x3 and moves all extremities Extrem: General: normal to inspection and no pedal edema Psych: Mental Status: mental status grossly normal Affect: normal affect Attitude: cooperative Course Course Emergency Course: urinalysis performed on an outpatient basis was reviewed and show that she has a urinary tract infection and will send antibiotics to her local pharmacy. Critical Care Time Critical Care Time Critical Care Time: No Discharge Plan Discharge Clinical Impression: Acute UTI Patient Disposition: Home, Self-Care Condition: Stable Instructions: Antibiotic Form, Urinary Tract Infection in Women (ED) Additional Instructions: take medicine as prescribed and follow-up with primary care physician if symptoms persist or worsen. Prescriptions: New nitrofurantoin macrocrystal [Macrodantin] 100 mg capsule 100 mg PO BID Qty: 14 RF: 0 No Action aspirin [Adult Aspirin Regimen] 81 mg tablet,delayed release (DR/EC) 81 mg PO DAILY RF: 0 alpha lipoic acid
[2021-12-25 13:04] VITALS: BP 195/73; PULSE 65; RESP 20; TEMP 36.6; O2SAT 100
[2021-12-25 13:12] VITALS: PULSE 64; RESP 20; O2SAT 100
== END 2021-12-25 13:18 | disposition home or self-care (01) ==
PROVIDERS: Emergency Provider Emergency Medicine; PCP Nurse Practitioner Family
DX: N39.0 Urinary tract infection, site not specified (principal); I10 Essential (primary) hypertension; E11.9 Type 2 diabetes mellitus without complications; E78.5 Hyperlipidemia, unspecified
CPT/HCPCS: 81001; 87086; 87088; 99283

== ENCOUNTER 2022-04-12 12:58 | Outpatient (RCR) | payer MEDICARE, OTHER, SELFPAY ==
--- NOTE | 2022-04-12 13:54 | PTOPEVAL ---
Thank you for referring Erica Billy to [facility] [place].? The patient is scheduled to be seen for therapy? __2__x/week for 12 visits. Please review, sign, date and return this plan of care ROSELINE. I agree with and certify that the following plan of care is medically necessary. Referring Physician Date Admitting Provider: Attending Provider: Luisa Le MD Referring Provider: *PT Outpatient Evaluation Start: 04/12/22 13:09 Freq: Status: Active Protocol: Document 04/12/22 13:09 CASSIE (Rec: 04/12/22 13:51 [email or web address]) Therapy Assessment Status Assessment Status Assessment Status Evaluation Evaluation Information Problem Diagnosis s/p lumbar fusion Onset 12/31/21 Subjective Information Pt. reports that she underwent Query Text:As Reported By Patient/ back surgery December 31. She Family reports that she has had numbness in the right leg and states that she no longer has pain in her back. she is currently using a ww, but was using only cane before surgery . She reports that she has not attempted to return to driving due to numbness in the right foot. She does however report that she has been able to return to doing dishes and laundry since surgery, as long as she has her walker. She states that her goal is to be able to walk without her walker and to be able to get down her basement steps without assist. Pain Assessment Timing of Pain Assessment Timing of Pain Assessment Pre-Treatment Pain Scale Pain Scale Used Numeric (1 - 10) Self Report Pain Assessment Lower Back Reported Pain Level 0 Lowest Pain Intensity 0 Greatest Pain Intensity 2 Additional Pain Comments Pt. uses extra strength Tylenol to reduce pain on occassion Pain Score Pain Score 0: Self Report Interventions Used Interventions Used By Clinicians Activity or ADL's,Exercise Lower Extremity Muscle Strength Testing General Lower Extremity Strength Gross Lower Extremity Strength -bilateral hip flexion 4/5 -bilateral hip abduction 4-/5 -bilateral knee flexion 5/5 -bilateral knee exten
--- NOTE | 2022-05-26 20:24 | PTOPEVAL ---
Thank you for referring Erica Billy to [facility].? The patient is scheduled to be seen for therapy? ____x/week for ___ weeks. Please review, sign, date and return this plan of care ROSELINE. I agree with and certify that the following plan of care is medically necessary. Referring Physician Date Admitting Provider: Attending Provider: Luisa Le MD Referring Provider: *PT Outpatient Evaluation Start: 04/12/22 13:09 Freq: Status: Active Protocol: Document 05/19/22 09:00 SHAYY (Rec: 05/19/22 11:06 [email or web address]) Therapy Assessment Status Assessment Status Assessment Status Discharge Evaluation Information Problem Diagnosis s/p lumbar fusion Onset 12/31/21 Additional Evaluation Detail oswestry = 12% functionally declined Subjective Information patient reports she feels Query Text:As Reported By Patient/ much better overall. she Family reports she knows she is not perfect, but she feels nearly there. she reports she is much more easily able to walk and get around her home and even in the community. Pain Assessment Timing of Pain Assessment Timing of Pain Assessment Assessment Self Report Self Report Pain Level 0 Pain Score Pain Score 0: Self Report Lower Extremity Muscle Strength Testing General Lower Extremity Strength Gross Lower Extremity Strength -bilateral hip flexion 4/5 -bilateral hip abduction 4/5 -bilateral knee flexion 5/5 -bilateral knee extension 5/5 -bilateral ankle dorsiflexion 4+/5 Balance Assessment Tinetti Balance Assessment Sitting Balance Steady, safe Ability to Arise Able, uses arms to help Attempts to Arise Arises on 1st attempt Immediate Standing Balance Steady with support Standing Balance Narrow stance w/o support Nudged Response Steady Standing with Eyes Closed Steady Step Pattern Turning 360 Degrees Discontinuous steps Stability Turning 360 Degrees Steady Sitting Down Uses arms or unsteady Initiation of Gait No hesitancy Right Foot Step Length Does pass stance foot Right Foot Step Height Completely clears floor Left Foot Step Length Does pass stance foot Left Foot Step Height Completely clears floor Step Symmetry Step length appears equal Step Continuity Steps appear continuous Path Description Mild/moderate
== END 2022-05-19 11:20 | disposition home or self-care (01) ==
LOC: CHSPT 12:58
PROVIDERS: PCP Family Medicine; Visit Provider Neurological Surgery
DX: Z98.1 Arthrodesis status (principal); M43.10 Spondylolisthesis, site unspecified
CPT/HCPCS: 97110; 97161; 97530

== ENCOUNTER 2022-05-20 12:06 | Outpatient (CLI) | payer MEDICARE, OTHER, SELFPAY ==
--- NOTE | ~2022-05-20 | XR_ITS ---
XR lumbar spine 2-3V DATE: 05/20/2022 12:37 INDICATION: Status post lumbar fusion TECHNIQUE: AP, lateral, coned lateral lumbosacral views COMPARISON: 07/26/2021 lumbar spine FINDINGS: There is interval postoperative change since 07/26/2021, with pedicle screws and rods at L2 5 bilaterally. There is osteopenia. There is rotatory dextroscoliosis. There is severe degenerative disc disease at L1-2, L2-3, L3-4 and L5-S1 and moderate degenerative disc disease at L4-5. Prominent degenerative change at the apophyseal joints. There is grade 1 anterolisthesis at L3-4 and grade 2 anterolisthesis at L4-5. No fracture or bone destruction is detected. The sacroiliac joints are intact. IMPRESSION: Status post posterior surgical spinal fusion from L2 to L5 since 07/26/2021 Severe degenerative change of the lumbar spine Grade 1 anterolisthesis at L3-4 and grade 2 anterolisthesis at L4-5 Reviewed, dictated and finalized at location B. IMPRESSION: Status post posterior surgical spinal fusion from L2 to L5 since Severe degenerative change of the lumbar spine Grade 1 anterolisthesis at L3-4 and grade 2 anterolisthesis at L4-5
== END 2022-05-20 12:07 | disposition home or self-care (01) ==
LOC: CHSIMG 12:09
PROVIDERS: PCP Family Medicine; Visit Provider Neurological Surgery
DX: Z98.1 Arthrodesis status (principal)
CPT/HCPCS: 72100

== ENCOUNTER 2022-07-22 13:47 | Outpatient (CLI) | payer MEDICARE, OTHER, SELFPAY ==
[2022-07-22 14:03] LABS: Basophils Absolute Auto 0.03 K/mm3 (0.00-0.10); Basophils Percent Auto 0.5 % (0.0-1.0); Eosinophils Absolute Auto 0.15 K/mm3 (0.02-0.50); Eosinophils Percent Auto 2.5 % (1.0-6.0); Hematocrit 38.6 % (35.0-42.0); Hemoglobin 12.5 g/dL (11.7-13.8); Immature Granulocyte Absolute 0.02 K/mm3 (0.00-0.00); Immature Granulocyte Percent A 0.3 % (0.0-0.0); Lymphocytes Absolute Auto 1.48 K/mm3 (1.10-4.50); Lymphocytes Percent Auto 25.1 % (18.0-42.0); Mean Corpuscular HGB Conc 32.4 g/dL (32.0-36.0); Mean Corpuscular Hemoglobin 29.2 pg (27.0-31.0); Mean Corpuscular Volume 90.2 fL (78.0-102.0); Mean Platelet Volume 10.2 fl (9.2-11.8); Monocytes Percent Auto 5.1 % (2.0-11.0); Neutrophils Absolute Auto 3.9 K/mm3 (1.7-7.2); Neutrophils Percent Auto 66.5 % (50.0-70.0); Platelet Count Result 288 K/mm3 (150-420); Red Blood Count 4.28 M/mm3 (4.20-5.40); Red Cell Distribution Width 13.3 % (11.6-14.4); White Blood Count 5.9 K/mm3 (4.8-10.8)
[2022-07-22 14:13] LABS: Hemoglobin A1C 6.4 % (<5.7)
[2022-07-22 14:19] LABS: Add Urine Microscopic? YES; Appearance Urine Slightly Cloudy (Clear); Bilirubin Urine Negative (Negative); Blood Urine Negative (Negative); Color Urine Orange (Yellow); Glucose Urine UA Negative (Negative); Ketones Urine Negative (Negative); Leukocyte Esterase Ur 1+ LEU/UL (Negative); Nitrate Urine Negative (Negative); Protein Urine Negative (Negative); Urobilinogen Urine 0.2 mg/dL (0.2-1.0)
[2022-07-22 14:26] LABS: Bacteria Urine 2+ /hpf; RBC Urine None seen /hpf (0-2); Renal Epithelial Cells Urine Few /hpf; Squamous Epithelial Cell Urine Few /hpf (Few)
[2022-07-22 14:42] LABS: Alanine Aminotransferase 32 U/L (14-59); Albumin Level 3.9 g/dL (3.4-5.0); Alkaline Phosphatase 98 U/L (46-116); Anion Gap 8 mmol/L (8-16); Aspartate Amino Transferase 21 U/L (15-37); Bilirubin,Total 1.2 mg/dL (0.00-1.00); Blood Urea Nitrogen 18 mg/dL (7-18); Calcium 9.9 mg/dL (8.5-10.1); Carbon Dioxide 29 mmol/L (21-32); Chloride 105 mmol/L (98-108); Estimated Glomerular Filt Rate 57; Glucose 136 mg/dL (70-99); Magnesium 1.7 mg/dL (1.8-2.4); Osmolality Calculated 297 mOsm/kg (285-295); Potassium 3.8 mmol/L (3.5-5.1); Sodium 142 mmol/L (136-145); Total Protein 6.7 g/dL (6.4-8.2)
== END 2022-07-22 13:48 | disposition home or self-care (01) ==
LOC: CHSLAB 13:50
PROVIDERS: PCP Family Medicine; Visit Provider Nurse Practitioner Family
DX: E83.42 Hypomagnesemia (principal); I10 Essential (primary) hypertension; E11.9 Type 2 diabetes mellitus without complications; R30.0 Dysuria
CPT/HCPCS: 36415; 80053; 81001; 83036; 83735; 85025; 87086; 87088

== ENCOUNTER 2022-08-18 11:21 | Outpatient (CLI) | payer MEDICARE, OTHER, SELFPAY ==
--- NOTE | ~2022-08-18 | XR_ITS ---
XR lumbar spine 2-3V DATE: 08/18/2022 12:01 INDICATION: Lumbar fusion in December 2021 TECHNIQUE: AP, lateral, coned lateral lumbosacral views COMPARISON: 05/20/2022 lumbar spine FINDINGS: Status post posterior surgical spinal fusion at L2-L5. No hardware fracture or displacement since 05/20/2022. There is osteopenia. There is moderately prominent rotatory dextroscoliosis of the lower thoracic and lumbar spine. There is moderately severe degenerative disc disease and mild retrolisthesis at L1-2. There is modera tely severe to severe degenerative disc disease at L2-3, L3-4, L4-5 and particularly L5-S1. There is grade 2 anterolisthesis at L4-5 which appears stable since 05/20/2022. The sacroiliac joints are intact. IMPRESSION: No significant change since 05/20/2022 Reviewed, dictated and finalized at location A. PILOT
== END 2022-08-18 11:22 | disposition home or self-care (01) ==
LOC: CHSIMG 11:25
PROVIDERS: PCP Family Medicine; Visit Provider Neurological Surgery
DX: Z98.1 Arthrodesis status (principal)
CPT/HCPCS: 72100

== ENCOUNTER 2022-11-10 07:40 | Outpatient (CLI) | payer MEDICARE, SELFPAY ==
[2022-11-10 08:18] LABS: Alanine Aminotransferase 30 U/L (14-59); Albumin Level 3.9 g/dL (3.4-5.0); Alkaline Phosphatase 89 U/L (46-116); Anion Gap 5 mmol/L (8-16); Aspartate Amino Transferase 18 U/L (15-37); Bilirubin,Total 0.8 mg/dL (0.00-1.00); Blood Urea Nitrogen 22 mg/dL (7-18); Calcium 9.7 mg/dL (8.5-10.1); Carbon Dioxide 33 mmol/L (21-32); Chloride 100 mmol/L (98-108); Estimated Glomerular Filt Rate 58; Glucose 121 mg/dL (70-99); Magnesium 1.8 mg/dL (1.8-2.4); Osmolality Calculated 290 mOsm/kg (285-295); Sodium 138 mmol/L (136-145); Total Protein 6.7 g/dL (6.4-8.2)
== END 2022-11-10 07:41 | disposition home or self-care (01) ==
LOC: CHSLAB 07:43
PROVIDERS: PCP Family Medicine; Visit Provider Family Medicine
DX: E83.42 Hypomagnesemia (principal)
CPT/HCPCS: 36415; 80053; 83735

== ENCOUNTER 2023-07-05 13:11 | Outpatient (CLI) | payer MEDICARE, BC, SELFPAY ==
[2023-07-05 13:27] LABS: Basophils Absolute Auto 0.03 K/mm3 (0.00-0.10); Basophils Percent Auto 0.5 % (0.0-1.0); Eosinophils Absolute Auto 0.26 K/mm3 (0.02-0.50); Eosinophils Percent Auto 3.9 % (1.0-6.0); Hematocrit 40.3 % (35.0-42.0); Hemoglobin 13.6 g/dL (11.7-13.8); Immature Granulocyte Absolute 0.02 K/mm3 (0.00-0.00); Immature Granulocyte Percent A 0.3 % (0.0-0.0); Lymphocytes Absolute Auto 1.77 K/mm3 (1.10-4.50); Lymphocytes Percent Auto 26.6 % (18.0-42.0); Mean Corpuscular HGB Conc 33.7 g/dL (32.0-36.0); Mean Corpuscular Hemoglobin 29.9 pg (27.0-31.0); Mean Corpuscular Volume 88.6 fL (78.0-102.0); Mean Platelet Volume 9.9 fl (9.2-11.8); Monocytes Absolute Auto 0.47 K/mm3 (0.10-0.90); Monocytes Percent Auto 7.1 % (2.0-11.0); Neutrophils Absolute Auto 4.1 K/mm3 (1.7-7.2); Neutrophils Percent Auto 61.6 % (50.0-70.0); Platelet Count Result 292 K/mm3 (150-420); Red Blood Count 4.55 M/mm3 (4.20-5.40); Red Cell Distribution Width 13.1 % (11.6-14.4); White Blood Count 6.7 K/mm3 (4.8-10.8)
[2023-07-05 13:42] LABS: Hemoglobin A1C 7.1 % (<5.7)
[2023-07-05 14:29] LABS: Alanine Aminotransferase 48 U/L (14-59); Alkaline Phosphatase 95 U/L (46-116); Anion Gap 9 mmol/L (8-16); Aspartate Amino Transferase 22 U/L (15-37); Bilirubin,Total 1.1 mg/dL (0.00-1.00); Blood Urea Nitrogen 20 mg/dL (7-18); Calcium 10.2 mg/dL (8.5-10.1); Carbon Dioxide 29 mmol/L (21-32); Chloride 102 mmol/L (98-108); Cholesterol 153 mg/dL (0-200); Estimated Glomerular Filt Rate > 60; Glucose 109 mg/dL (70-99); HDL Direct 49 mg/dL (40-60); LDL Cholesterol Calculated 76 mg/dL (<130); Magnesium 1.9 mg/dL (1.8-2.4); Osmolality Calculated 293 mOsm/kg (285-295); Potassium 4.2 mmol/L (3.5-5.1); Sodium 140 mmol/L (136-145); Total Protein 6.8 g/dL (6.4-8.2); Triglycerides 138 mg/dL (0-150); Vitamin B12 716 pg/mL (193-986)
[2023-07-08 14:35] LABS: Vitamin D 25 Hydroxy 51 ng/mL (30-100)
== END 2023-07-05 13:12 | disposition home or self-care (01) ==
PROVIDERS: PCP Nurse Practitioner Family; Visit Provider Nurse Practitioner Family
DX: I10 Essential (primary) hypertension (principal); E11.9 Type 2 diabetes mellitus without complications; E78.5 Hyperlipidemia, unspecified; E83.42 Hypomagnesemia; Z79.899 Other long term (current) drug therapy
CPT/HCPCS: 36415; 80053; 80061; 82306; 82607; 83036; 83735; 85025

== ENCOUNTER 2023-10-05 11:22 | Outpatient (CLI) | payer MEDICARE, SELFPAY ==
[2023-10-05 11:39] LABS: Basophils Absolute Auto 0.04 K/mm3 (0.00-0.10); Basophils Percent Auto 0.7 % (0.0-1.0); Eosinophils Absolute Auto 0.22 K/mm3 (0.02-0.50); Eosinophils Percent Auto 3.9 % (1.0-6.0); Hematocrit 41.7 % (35.0-42.0); Hemoglobin 13.8 g/dL (11.7-13.8); Immature Granulocyte Absolute 0.01 K/mm3 (0.00-0.00); Immature Granulocyte Percent A 0.2 % (0.0-0.0); Lymphocytes Absolute Auto 1.71 K/mm3 (1.10-4.50); Lymphocytes Percent Auto 30.5 % (18.0-42.0); Mean Corpuscular HGB Conc 33.1 g/dL (32.0-36.0); Mean Corpuscular Hemoglobin 29.7 pg (27.0-31.0); Mean Corpuscular Volume 89.7 fL (78.0-102.0); Mean Platelet Volume 9.2 fl (9.2-11.8); Monocytes Absolute Auto 0.39 K/mm3 (0.10-0.90); Neutrophils Absolute Auto 3.2 K/mm3 (1.7-7.2); Neutrophils Percent Auto 57.7 % (50.0-70.0); Platelet Count Result 290 K/mm3 (150-420); Red Blood Count 4.65 M/mm3 (4.20-5.40); Red Cell Distribution Width 13.5 % (11.6-14.4); White Blood Count 5.6 K/mm3 (4.8-10.8)
[2023-10-05 11:53] LABS: INR 1.8; Prothrombin Time 19.2 Seconds (9.50-12.10)
[2023-10-05 12:30] LABS: Alanine Aminotransferase 46 U/L (14-59); Albumin Level 3.9 g/dL (3.4-5.0); Alkaline Phosphatase 76 U/L (46-116); Anion Gap 4 mmol/L (8-16); Aspartate Amino Transferase 37 U/L (15-37); Bilirubin,Total 0.8 mg/dL (0.00-1.00); Blood Urea Nitrogen 23 mg/dL (7-18); Calcium 9.6 mg/dL (8.5-10.1); Carbon Dioxide 34 mmol/L (21-32); Chloride 98 mmol/L (98-108); Estimated Glomerular Filt Rate 59; Glucose 128 mg/dL (70-99); Magnesium 1.6 mg/dL (1.8-2.4); Osmolality Calculated 287 mOsm/kg (285-295); Potassium 4.1 mmol/L (3.5-5.1); Sodium 136 mmol/L (136-145); Total Protein 6.7 g/dL (6.4-8.2)
[2023-10-07 13:34] LABS: Vitamin D 25 Hydroxy 42 ng/mL (30-100)
== END 2023-10-05 11:23 | disposition home or self-care (01) ==
LOC: CHSLAB 11:24
PROVIDERS: Family Medicine; PCP Nurse Practitioner Family; Visit Provider Nurse Practitioner Family
DX: E83.42 Hypomagnesemia (principal); Z79.899 Other long term (current) drug therapy; I10 Essential (primary) hypertension; Z79.01 Long term (current) use of anticoagulants
CPT/HCPCS: 36415; 80053; 82306; 83735; 85025; 85610

== ENCOUNTER 2023-10-11 12:51 | Outpatient (CLI) | payer MEDICARE, SELFPAY ==
[2023-10-11 13:21] LABS: INR 2.3; Prothrombin Time 23.5 Seconds (9.50-12.10)
== END 2023-10-11 12:52 | disposition home or self-care (01) ==
LOC: CHSLAB 12:56
PROVIDERS: PCP Family Medicine; Visit Provider Family Medicine
DX: Z79.01 Long term (current) use of anticoagulants (principal)
CPT/HCPCS: 36415; 85610

== ENCOUNTER 2023-11-21 13:26 | Outpatient (CLI) | payer MEDICARE, SELFPAY ==
[2023-11-21 13:59] LABS: INR 1.6; Prothrombin Time 16.5 Seconds (9.50-12.10)
== END 2023-11-21 13:27 | disposition home or self-care (01) ==
LOC: CHSLAB 13:29
PROVIDERS: PCP Family Medicine; Visit Provider Family Medicine
DX: Z79.01 Long term (current) use of anticoagulants (principal)
CPT/HCPCS: 36415; 85610

== ENCOUNTER 2023-11-28 11:11 | Outpatient (CLI) | payer MEDICARE, SELFPAY ==
[2023-11-28 11:45] LABS: INR 1.4; Prothrombin Time 15.2 Seconds (9.50-12.10)
== END 2023-11-28 11:12 | disposition home or self-care (01) ==
LOC: CHSLAB 11:13
PROVIDERS: PCP Family Medicine; Visit Provider Family Medicine
DX: Z79.01 Long term (current) use of anticoagulants (principal)
CPT/HCPCS: 36415; 85610

== ENCOUNTER 2023-12-12 11:26 | Outpatient (CLI) | payer MEDICARE, SELFPAY ==
[2023-12-12 12:04] LABS: INR 3.4; Prothrombin Time 34.1 Seconds (9.50-12.10)
== END 2023-12-12 11:27 | disposition home or self-care (01) ==
LOC: CHSLAB 11:28
PROVIDERS: PCP Family Medicine; Visit Provider Nurse Practitioner Family
DX: Z79.01 Long term (current) use of anticoagulants (principal)
CPT/HCPCS: 36415; 85610

== ENCOUNTER 2023-12-21 10:42 | Outpatient (CLI) | payer MEDICARE, SELFPAY ==
[2023-12-21 11:26] LABS: INR 3.2; Prothrombin Time 32.4 Seconds (9.50-12.1)
== END 2023-12-21 10:43 | disposition home or self-care (01) ==
LOC: CHSLAB 10:44
PROVIDERS: PCP Family Medicine; Visit Provider Family Medicine
DX: Z79.01 Long term (current) use of anticoagulants (principal)
CPT/HCPCS: 36415; 85610

== ENCOUNTER 2024-01-04 08:39 | Outpatient (CLI) | payer MEDICARE, SELFPAY ==
[2024-01-04 09:04] LABS: INR 2.5; Prothrombin Time 25.4 Seconds (9.50-12.1)
== END 2024-01-04 08:40 | disposition home or self-care (01) ==
LOC: CHSLAB 08:40
PROVIDERS: PCP Family Medicine; Visit Provider Family Medicine
DX: Z79.01 Long term (current) use of anticoagulants (principal)
CPT/HCPCS: 36415; 85610

== ENCOUNTER 2024-03-28 09:20 | Outpatient (CLI) | payer MEDICARE, SELFPAY ==
--- NOTE | ~2024-03-28 | XR_ITS ---
XR knee RT 3V Ordering provider: Efra Montoya DO History: . M25.561 - Pain in right knee . Comparison: None. FINDINGS: BONES: No acute fracture or dislocation. JOINT SPACES: Narrowing of the medial compartment. Chondrocalcinosis is seen in the lateral meniscus. SOFT TISSUES: Calcification above the patella suggestive of synovial chondromatosis in the suprapatel lar bursa. IMPRESSION: No acute osseous abnormality right knee. Severe osteoarthritic changes. Synovial chondromatosis. Reviewed, dictated and finalized at location A.
== END 2024-03-28 09:21 | disposition home or self-care (01) ==
LOC: CHSIMG 09:24
PROVIDERS: PCP Family Medicine; Visit Provider Family Medicine
DX: M25.561 Pain in right knee (principal); M17.11 Unilateral primary osteoarthritis, right knee; M94.261 Chondromalacia, right knee
CPT/HCPCS: 73562

== ENCOUNTER 2024-05-28 12:17 | Outpatient (CLI) | payer MEDICARE, SELFPAY ==
--- NOTE | ~2024-05-28 | MM_ITS ---
EXAMINATION: MM screening efren BI w srikanth HISTORY: Screening TECHNIQUE: Craniocaudal and mediolateral oblique 3-D tomosynthesis images were obtained and synthetic 2-D images were generated. CAD analysis was submitted and interpreted. COMPARISON: Comparison to multiple prior studies sequentially, with oldest reviewed study dated 11/07. BREAST PARENCHYMAL COMPOSITION: There are scattered areas of fibroglandular density. FINDINGS: There is no evidence of suspicious mass, calcification, or architectural distortion to sugg est malignancy in either breast. There has been no suspicious interval change. IMPRESSION: 1. No mammographic evidence of malignancy. 2. Recommend routine screening mammography in one year. BI-RADS Category 1: Negative Reviewed, dictated and finalized at location B.
== END 2024-05-28 12:18 | disposition home or self-care (01) ==
LOC: CHSIMG 12:19
PROVIDERS: PCP Family Medicine; Visit Provider Family Medicine
DX: Z12.31 Encounter for screening mammogram for malignant neoplasm of breast (principal)
CPT/HCPCS: 77063; 77067

== ENCOUNTER 2024-06-07 12:23 | Outpatient (CLI) | payer MEDICARE, SELFPAY ==
[2024-06-07 12:55] LABS: INR 2.5; Prothrombin Time 25.9 Seconds (9.50-12.1)
== END 2024-06-07 12:24 | disposition home or self-care (01) ==
LOC: CHSLAB 12:25
PROVIDERS: PCP Family Medicine; Visit Provider Family Medicine
DX: Z79.01 Long term (current) use of anticoagulants (principal)
CPT/HCPCS: 36415; 85610

== ENCOUNTER 2025-06-25 14:01 | Outpatient (CLI) | payer MEDICARE, SELFPAY ==
[2025-06-25 14:12] LABS: Hematocrit 39.9 % (35.0-42.0); Hemoglobin 13.1 g/dL (11.7-13.8); Immature Granulocyte Percent A 0.3 % (0.0-0.0); Lymphocytes Absolute Auto 1.74 K/mm3 (1.10-4.50); Mean Corpuscular HGB Conc 32.8 g/dL (32-36); Mean Corpuscular Hemoglobin 28.8 pg (27.0-31.0); Mean Corpuscular Volume 87.7 fL (78.0-102.0); Nucleated Red Blood Cells Absolute Auto 0.00 K/mm3 (0.00-0.00); Nucleated Red Blood Cells Perc 0.0 % (0-0.0); Platelet Count Result 281 K/mm3 (150-420); Red Blood Count 4.55 M/mm3 (4.20-5.40); White Blood Count 6.3 K/mm3 (4.8-10.8)
[2025-06-25 14:23] LABS: Alanine Aminotransferase 25 U/L (6-35); Albumin Level 4.2 g/dL (3.5-5.1); Anion Gap 12 mmol/L (4-12); Aspartate Amino Transferase 30 U/L (14-36); Bilirubin,Total 1.5 mg/dL (0.2-1.3); Blood Urea Nitrogen 15 mg/dL (7-17); Calcium 10.3 mg/dL (8.4-10.2); Carbon Dioxide 27 mmol/L (22-30); Chloride 101 mmol/L (98-107); Cholesterol 157 mg/dL (0-200); Estimated Glomerular Filt Rate > 60; Glucose 182 mg/dL (65-110); HDL Direct 43 mg/dL; Magnesium 1.6 mg/dL (1.6-2.3); Osmolality Calculated 295 mOsm/kg (285-295); Potassium 3.8 mmol/L (3.4-5.0); Sodium 140 mmol/L (137-145); Total Protein 7.2 g/dL (6.3-8.2); Triglycerides 233 mg/dL (<150)
[2025-06-25 14:24] LABS: Alkaline Phosphatase 92 U/L (38-126)
[2025-06-25 14:43] LABS: Hemoglobin A1C 8.1 % (<5.7)
--- OUTSIDE RECORDS SUMMARY | 2025-06-25 14:43 | XMS_ITS | Clinical Summary ---
Author Organization [facility] Address [facility] [place] [address] Care Team Providers Care Hospital Chaplain Name Role Phone Unavailable Primary Care Provider Unavailabl e Allergies Active Allergy Reactions Criticality Noted Date Comments Furosemide Angioedema High 04/09/2021 Sulfa (Sulfonamide Antibiotics) Swelling Medium 11/2020 Medications atorvastatin (LIPITOR) 40 mg tablet 11/22/2020 Active OneTouch Verio test strips strip DIRECTED TEST DAILY 12/31/2020 Active OneTouch Verio Reflect Meter misc USE TO TEST DAILY 12/31/2020 Active cholecalciferol 10 mcg (400 unit) tablet Take 800 Units by mouth daily 12/17/2020 Active ibuprofen (ADVIL,MOTRIN) 600 mg tablet 11/12/2020 Activ e OneTouch Delica Plus Lancet 33 gauge misc TESTING ONCE DAILY. DX E11.9 01/01/2021 Active lisinopriL (PRINIVIL,ZESTR IL) 20 mg tablet 01/28/2021 Active metoprolol tartrate (LOPRESSOR) 25 mg immediate release tablet Take 1-2 tablets by mouth 2 (two) times a day Take two 25 mg tabs in Am and one 25 mg tab at dinner 04/09/2021 Active Mag 64 64 mg delayed release tablet TAKE 2 TABLETS BY MOUTH TWICE A DAY FOR 90 DAYS 11/24/2020 Active alpha lipoic acid 300 mg capsule Take 1 tab by mouth daily 90 capsule 1 02/15/2021 Active furosemide (LASIX) 20 mg tablet TAKE 1 TABLET BY MOUTH IN THE MORNING NEEDED FOR EDEMA 03/20/2021 Active chlorthalidone 25 mg tablet Take 25 mg by mouth daily 05/27/2021 Active amLODIPine (NORVASC) 5 mg tablet 04/28/2021 Active Active Problems Problem Noted Date Diagnosed Date Type 2 diabetes mellitus without complication Neuropathy 02/15/2021 Low magnesium level 02/15/2021 Hyponatremia 02/15/2021 Hypercalcemia 02/15/2021 Stage 3b chronic kidney disease 02/15/2021 Social History Tobacco Use Types Packs/Day Years Used Date Smoking Tobacco: Never Personal Safety Answer Date Recorded Getting School Help Needed Not on file 12/03 Comments Unknown Sex and Gender Information Value Date Recorded Sex Assigned at Not on file 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 Gender Identity Not on file Sexual Orientation Not on file Obstetrics History Last Filed Vital Signs Vital Sign Reading Time Taken Comments Blood Pressure 167/66 06/22/2021 9:53 AM CDT Pulse 77 06/22/2021 9:53 AM CDT Temperature 36.5 C (97.7 F) 06/22/2021 9:53 AM CDT Respiratory Rate - - Oxygen Saturation - - Inhaled Oxygen Concentration - - Weight 102.4 kg (225 lb 12.8 oz) 06/22/2021 9:53 AM CDT Height 167.6 cm (5' 6) 06/22/2021 9:53 AM CDT Body Mass Index 36.45 06/22/2021 9:53 AM CDT Plan of Treatment Not on file Insurance MEDICARE [facility] [place] [address]
--- OUTSIDE RECORDS SUMMARY | 2025-06-25 14:43 | XMS_ITS | Clinical Summary ---
Author Organization [facility] Address [address] [place] [address] Care Team Providers Care Senior Cytogenetic Technologist Name Role Phone Unavailable Primary Care Provider Unavailabl e Source Comments [facility],non-owned Affiliates and Associated Physician Practices is amultiple site organization consisting of ambulatory clinics and hospital sitesin [place], [place], [place] and [place]. This disclosure is being madepursuant to the Care Everywhere program and may not contain all information available regarding this patient. Last updated 18.[facility] [place] Allergies Active Allergy Reactions Criticality Noted Date Comments Furosemide Angioedema High 04/09/2021 Sulfa Drugs Swelling Medium 04/09/2021 Medications * Be aware that medications may not be up to date on this document. Alwaysverify current medications with the patient. lisinopril (PRINIVIL; ZESTRIL) 20 MG tablet 1 Active atorvastatin (LIPITOR) 40 MG tablet 1 Active cyclobenzaprin e (FLEXERIL) 10 MG tablet [address] (SLOW-MAG) 64 MG tablet TAKE 2 TABLETS BY MOUTH TWICE A DAY FOR 90 DAYS 1 Active Alpha-Lipoic Acid 300 MG Take 1 tablet by mouth once daily 1 Active Blood Glucose Monitoring Suppl (ONETOUCH VERIO REFLECT) w/Device KIT USE TO TEST DAILY 1 Active Blood Glucose Monitoring Suppl (ONETOUCH VERIO REFLECT) w/Device KIT 1 Active dulaglutide (TRULICITY) 0.75 MG/0.5ML injection Inject 0.75 mg subcutaneously every 7 days Active sodium chloride 1 GM tablet 1 Active B Complex Vitamins (B COMPLEX 1 PO) Take 1 tablet by mouth once daily 2 Active chlorthalidone (HYGROTON) 25 MG tablet 1 tablet DAILY (route: oral) 2 Active XARELTO 20 MG tablet Take 1 tablet by mouth daily before breakfast 2 Active Multiple Vitamin (MULTIVITAMIN ADULT PO) 1 tablet DAILY (route: oral) 2 Active Cholecalcifero l (VITAMIN D3) 1.25 MG (24267 UT) capsule 1 tablet DAILY (route: oral) 2 Active metoprolol tartrate (LOPRESSOR) 50 MG tablet 1 tablet 2 TIMES DAILY (route: oral) 1 Active Active Problems Problem Noted Date Diagnosed Date Deep 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 Gender Identity Not on file Sexual Orientation Not on file Last Filed Vital Signs Vital Sign Reading Time Taken Comments Blood Pressure 127/74 04/18/2022 1:30 PM CDT Pulse 65 04/18/2022 1:30 PM CDT Temperature 36.6 C (97.8 F) 04/18/2022 1:00 PM CDT Respiratory Rate 19 04/18/2022 1:30 PM CDT Oxygen Saturation 92% 04/18/2022 1:30 PM CDT Inhaled Oxygen Concentration - - Weight 98.6 kg (217 lb 6.4 oz) 04/18/2022 8:25 A M CDT Height 167.6 cm (5' 6) 04/18/2022 8:25 AM CDT Body Mass Index 35.09 04/18/2022 8:25 AM CDT Plan of Treatment Health Maintenance Due Date Last Done Comments BONE DENSITY TESTING 1950 COLOGUARD (AGES 45-75) - COL ON CA SCREENING 1950 COLON MONITORING 1950 COLONOSCOPY - COLON CA SCREENING 1950 CT COLONOGRAPHY - COLON CA SCREENING 1950 Colorectal Cancer Screening 1950 FIT - COLON CA SCREENING 1950 FLEX SIG - COLON CA SCREENING 1950 MAMMOGRAM 1950 HEPATITIS C SCREENING 02/08/1969 DTAP/TDAP/TD VACCINES (1 - Tdap) 1970 PNEUMOCOCCAL VACCINE 50+ (1 of 1 - PCV) 2001 ZOSTER VACCINE (1 of 2) 2001 DEPRESSION SCREENING 10/09/2024 SCREENING FOR DIABETES 04/18/2025 , 09/06/2021, 09/06/2021 COVID-19 VACCINE (3 - 2024-2 6 season) 2025 12/01/2020, 11/06/2020 INFLUENZA VACCINE (#1) 2025 Respiratory Syncytial Virus (RSV) Vaccine Pt: or over 60 yrs (1 - 1-dose 75+ series) 2026 HEPATITIS B VACCINE Aged Out No longe r eligible based on patient's age to complete this topic HIB VACCINE Aged Out No longer eligi ble based on patient's age to complete this topic HPV VACCINE Aged Out No longer eligi ble based on patient's age to complete this topic MENINGOCOCCAL (Group B) VACCINE SHARED DECISION-MAKING Aged Out No longer eligible based on patient's age to complete this topic MENINGOCOCCAL GROUPS A/C/Y/W VACCINE Aged Out No longer eligible b ased on patient's age to complete this topic Medical Devices Implanted Type Area Ocean Forwarder Device Identifier Shelf Expiration Date Model / Serial / Lot Fltr Embl Vc Fem Dlv Kt Strl Lf Disp Implanted:Qty: 1 on 09/06/2021 at [facility] [employer]ena [employer] Peripheral [employer] 08/08/2024 [id number] / / [id number] Description:Dr. Spear IVC Filter Procedures Procedure Name Priority Date/Time Associated Diagnosis Comments GLUCOSE - POINT OF CARE Routine 04/18/2022 8:46 AM CDT from Last 3 Months or Most Recently Relevant to Health Maintenance Results * (ABNORMAL) GLUCOSE - POINT OF CARE (04/18/2022 8:46 AM CDT) Glucose WB/POC 139(H) 70 - 115 mg/dL 04/18/2022 8:51 AM CDT [facility] Specimen Type Arterial 04/18/2022 8:51 AM CDT [facility] Blood BLOOD SPECIMEN / Unknown 04/18/2022 8:46 AM CDT 04/18/2022 8:51 AM CDT Roger Spear MD LAB - POINT OF CARE ORDERABLES F inal Result [facility] [address] [place] [address], [facility] [phone] from Last 3 Months or Most Recently Relevant to Health Maintenance Insurance MEDICARE [facility] [place] [address] MEDICARE [facility]
[2025-06-25 14:50] LABS: INR 3.4; Prothrombin Time 33.0 Seconds (9.50-12.1)
== END 2025-06-25 14:02 | disposition home or self-care (01) ==
PROVIDERS: PCP Family Medicine; Visit Provider Nurse Practitioner Family
DX: E78.5 Hyperlipidemia, unspecified (principal); Z13.6 Encounter for screening for cardiovascular disorders; E11.9 Type 2 diabetes mellitus without complications; I10 Essential (primary) hypertension; Z79.01 Long term (current) use of anticoagulants; Z79.899 Other long term (current) drug therapy; E83.42 Hypomagnesemia
CPT/HCPCS: 36415; 80053; 80061; 82306; 83036; 83735; 85025; 85610

== ENCOUNTER 2025-07-03 13:55 | Outpatient (CLI) | payer MEDICARE, SELFPAY ==
[2025-07-03 13:52] LABS: INR 1.8; Prothrombin Time 18.8 Seconds (9.50-12.1)
--- OUTSIDE RECORDS SUMMARY | 2025-07-03 16:42 | XMS_ITS | Clinical Summary ---
Author Organization [facility] Address [address] [place] [address] Care Team Providers Care Feeder Operator Name Role Phone SobeidaEfra gonzales Primary Care Provider [phone] Allergies Active Allergy Reactions Criticality Noted Date Comments Furosemide Angioedema High 04/09/2021 Sulfa Antibiotics Swelling Medium 04/09/2021 Medications lisinopril 20 MG tablet Take 2 tablets by mouth daily. 01/28/2021 Active metoprolol tartrate 50 MG tablet Take 1 tablet by mouth 2 (two) times a day. 06/28/2021 Active atorvastatin 40 MG tablet Take 1 tablet by mouth daily. 05/18/2021 Active chlorthalidone 25 MG tablet Take 25 mg by mouth daily. 05/27/2021 Active dulaglutide (TRULICITY) 0.75 MG/0.5ML injection Inject 0.75 mg into the skin once a week. On fridays Active cyclobenzaprine 10 MG tablet Take 1 tablet by mouth daily as needed. 08/06/2021 Active magnesium chloride EC 64 MG Tab EC tablet Take 128 mg by mouth nightly. Active B complex-C Cap capsule Take 1 capsule by mouth daily. Active Multiple Vitamins-Minera ls (MULTIMINERAL PLUS OR) Take 1 tablet by mouth daily. Active Cholecalciferol (VITAMIN D) 50 MCG (1999) Tab Take 1,000 mcg by mouth daily. Active THIOCTIC ACID 300 MG Cap Take 1 tablet by mouth daily. Active sulfamethoxazol e-trimethoprim 800-160 MG tablet 12/28/2021 Active Active Problems Problem Noted Date Diagnosed Date Scoliosis 12/31/2021 Family History Medical History Relation Comments Parkinson's Disease Father Cancer Mother leukemia Relation Status Comments Father Mother Social History Tobacco Use Types Packs/Day Years Used Date Smoking Tobacco: Never Smokeless Tobacco: Never Alcohol Use Standard Drinks/Week Comments Yes 0 (1 standard drink = 0.6 oz pur e alcohol) occasional glass of wine Comments No Sex and Gender Information Value Date Recorded Sex Assigned at Not on file Legal Sex Female 7:52 PM CDT Gender Identity Not on file Sexual Orientation Not on file Last Filed Vital Signs Vital Sign Reading Time Taken Comments Blood Pressure 106/45 01/08/2022 11:36 AM CDT Pulse 60 01/08/2022 11:36 AM CDT Temperature 36.3 C (97.3 F) 01/08/2022 11:36 AM CDT Respiratory Rate 18 01/08/2022 11:3 6 AM CDT Oxygen Saturation 98% 01/08/2022 11: 36 AM CDT Inhaled Oxygen Concentration - - Weight 110.8 kg (244 lb 4.3 oz) 01/08/2022 5:02 AM CDT Height 167.6 cm (5' 6) 12/31/2021 7:33 AM CDT Body Mass Index 39.43 12/31/2021 7:33 AM CDT Plan of Treatment Health Maintenance Due Date Last Done Comments Colorectal Cancer Screening Colonoscopy (10 Years) 1951 Hepatitis C 1969 DTaP, Tdap and Td Vaccines ( 1 - Tdap) 1970 Mammogram Screening 1991 Zoster Vaccines (1 of 2) 2001 Annual Medicare Wellness Visit 02/14/2016 Dexa Scan (General) 02/14/2016 Pneumococcal Vaccine: 50+ Years (2 of 2 - PCV) 10/24/2020 10/24/2019 COVID-19 Vaccine (4 - 2024-2 6 season) 2025 09/10/2021, 12/01/2020, 11/06/2020 RSV Immunization or 60+ Years (1 - 1-dose 75+ series) 2026 Meningococcal B Vaccine Aged Out No l onger eligible based on patient's age to complete this topic Meningococcal Vaccine Aged Out No tania sukumar eligible based on patient's age to complete this topic RSV Immunizations Under 20 Months Aged Out No longer eligible b ased on patient's age to complete this topic Medical Devices Implanted Type Area Housekeeper Head Device Identifier Shelf Expiration Date Model / Serial / Lot Graft Bone I Factor 5cc Allograft Putty Syringe - [id number] Implanted:Qty: 1 on 12/31/2021 by Luisa Le MD at [facility] Bone N/A: Spine Lumbar [employer] [id number] 07/08/2024 [id number] / / [id number] 4.5 X 40mm Screw Implanted:Qty: 1 on 12/31/2021 by Luisa Le MD at [facility] Screw N/A: Spine Lumbar -[id number]-[id number] 0 / / Description:Housekeeper Head: Delcid rgalign 4.5 X 45mm Screw Implanted:Qty: 3 on 12/31/2021 by Luisa Le MD at [facility] Screw N/A: Spine Lumbar -PA-45-4 5 / / Description:Housekeeper Head: Delcid rgalign 5.5 X 45mm Screw Implanted:Qty: 1 on 12/31/2021 by Luisa Le MD at [facility] Screw N/A: Spine Lumbar -PA-55-4 5 / / Description:Housekeeper Head: Delcid rgalign 6.5 X 45mm Screw Implanted:Qty: 2 on 12/31/2021 by Luisa Le MD at [facility] Screw N/A: Spine Lumbar -PA-65-4 5 / / Description:Housekeeper Head: Delcid rgalign Set Screw Implanted:Qty: 7 on 12/31/2021 by Luisa Le MD at [facility] N/A: Spine Lumbar 01-SETSCRE W / / Description:Housekeeper Head: Delcid rgalign 90mm Kavin Implanted:Qty: 2 on 12/31/2021 by Luisa Le MD at [facility] N/A: Spine Lumbar 10-55-WI-[id number] 0 / / Insurance [facility] MEDICARE Advance Directives * Full Code (Latest Code Status on File) Date Activated Date Inactivated Comments 01/01/2022 2:55 PM 01/08/2022 4:46 PM Care Teams Feeder Operator Relationship Specialty Start Date End Date Efra Montoya DO [address] [place] [address] PCP - General FAMILY PRACTICE 12/09/21
--- OUTSIDE RECORDS SUMMARY | 2025-07-03 16:42 | XMS_ITS | Clinical Summary ---
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
--- OUTSIDE RECORDS SUMMARY | 2025-07-03 16:42 | XMS_ITS | Clinical Summary ---
Author Organization [facility] Address [address] [place] [address] Care Team Providers Care Banquet Server On Call Name Role Phone Unavailable Primary Care Provider Unavailabl e Source Comments [facility],non-owned Affiliates and Associated Physician Practices is amultiple site organization consisting of ambulatory clinics and hospital sitesin [place], [place], [place] and [place]. This disclosure is being madepursuant to the Care Everywhere program and may not contain all information available regarding this patient. 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 Spear IVC Filter Procedures Procedure Name Priority Date/Time Associated Diagnosis Comments GLUCOSE - POINT OF CARE Routine 04/18/2022 8:46 AM CDT from Last 3 Months or Most Recently Relevant to Health Maintenance Results * (ABNORMAL) GLUCOSE - POINT OF CARE (04/18/2022 8:46 AM CDT) Glucose WB/POC 139(H) 70 - 115 mg/dL 04/18/2022 8:51 AM CDT [facility] Specimen Type Arterial 04/18/2022 8:51 AM CDT [facility] Blood BLOOD SPECIMEN / Unknown 04/18/2022 8:46 AM CDT 04/18/2022 8:51 AM CDT Roger Spear MD LAB - POINT OF CARE ORDERABLES F inal Result [facility] [address] [place] [address], [facility] [phone] from Last 3 Months or Most Recently Relevant to Health Maintenance Insurance MEDICARE [facility] [place] [id number] MEDICARE [employer]
== END 2025-07-03 13:56 | disposition home or self-care (01) ==
PROVIDERS: PCP Nurse Practitioner Family; Visit Provider Nurse Practitioner Family
DX: Z79.01 Long term (current) use of anticoagulants (principal)
CPT/HCPCS: 36415; 85610